=== PATIENT | female | born 1950 | race Caucasian/White ===

== ENCOUNTER → 2016-07-22 | Day surgery (SDC) | payer MEDICARE, MEDICAID ==
[~2016-07-22] VITALS: Ht 160 cm; Wt 102.3 kg
[~2016-07-22] MED LIST: BUPIVACAINE HCL PF 0.5% 30 ML VIAL ONE; CLINDAMYCIN PHOS 900 MG/6 ML VIAL ONE; CYMB60CA PO; DEXAMETHASONE SOD PHOS 4 MG/ML VIAL ONE; DEXT 5%-NACL 0.45% 1000 ML INJ 1,000 ML IV SCH; GABA300C5 PO; HYDR-3111 PO; HYDR25TA5 PO; LACTATED RINGER'S 1000 ML INJ 1,000 ML IV ONE; LACTATED RINGER'S 1000 ML INJ 1,000 ML ONE; LISI-515 PO; MELO7.5T4 PO; MIDAZOLAM HCL 2 MG/2 ML VIAL ONE; NORC5TAB PO; ONDANSETRON HCL 4 MG/2 ML VIAL IV PUSH ONE; PHENYLEPH/NS 1000 MCG/10 ML SYR IV ONE; PHENYLEPHRINE HCL 10 MG/ML VIAL IV ONE; POVIDONE IODINE 10% OINT 1 PACKET TOP ONE; PROPOFOL 200 MG/20 ML AMP IV ONE; SODIUM CHLOR 0.9% 250 ML INJ 250 ML IV ONE; SODIUM CHLOR 0.9% 250 ML INJ 250 ML ONE; SODIUM CHLORIDE 0.9% FLUSH 5 ML FLUSH IVF PRN; SODIUM CHLORIDE 0.9% FLUSH 5 ML FLUSH IVF SCH; TIZA4CAP3 PO; fentaNYL CITRATE 250 MCG/5 ML AMP ONE
[2016-07-22 06:51] VITALS: BP 145/89; PULSE 101; RESP 24; TEMP 98.1; O2SAT 96
[2016-07-22 07:13] LABS: HEMATOCRIT 42.7 % (35.0-46.0); MEAN CELL VOLUME 84.5 FL (80.0-100.0); MEAN CORPUSCULAR HGB CONC 33.1 % (32.0-36.0); PLATELET COUNT 304 TH/MM3 (150-450); RED BLOOD COUNT 5.05 MIL/MM3 (4.00-5.30); RED CELL DISTRIBUTION WIDTH 13.3 % (11.6-17.2); REVIEW FLAG FINAL; WHITE BLOOD COUNT 7.7 TH/MM3 (4.0-11.0)
[2016-07-22 07:35] VITALS: PULSE 125
--- NOTE | 2016-07-22 07:54 | HP.UPD ---
H&P Update Date: Jul 22, 2016 Note The Pre-Admit History and Physical Examination regarding the above named patient was reviewed (including, but not limited to, vital signs, medications, allergies, co-morbid conditions), and upon re-examination it is noted that: Indicated with "X" x - the patient's condition has not significantly changed since the last examination. [] - the patient's condition has changed since the last examination. Changes: Mary Ricks MD Jul 22, 2016 07:53
[2016-07-22] MEDS: TRIAMCINOLONE ACETONIDE 40 MG/ML VIAL ONE ×2 (08:41→10:34)
[2016-07-22 10:49] VITALS: PULSE 111
--- NOTE | 2016-07-22 10:58 | HHI.PR ---
Immediate Post Op Note Procedure Date: Jul 22, 2016 Pre Op Diagnosis: (1) Carpal tunnel syndrome (2) Osteoarthritis of hand, primary localized Post Op Diagnosis: (1) Carpal tunnel syndrome (2) Osteoarthritis of hand, primary localized Surgeon: Mary Ricks Frame Stripper(s): None Procedure: Interposition arthroplasty of the left thumb CMC joint. Release of the left carpal tunnel. Nerve wrap. Inject right thumb CMC joint with 0.3ml of Kenalog 40 Anesthesia: General Drains: None Tourniquet time (min at mmHg) 106 minutes at 220 mm Hg Patient to: PACU Patient Condition: Good Implant/Devices: SEE IMPLANT LOG (if applicable) Date/Time of Procedure: SEE SURGICAL CARE RECORD Mary Ricks MD Jul 22, 2016 10:58
[2016-07-22 11:45] VITALS: PULSE 103; TEMP 98.7
[2016-07-22 12:20] VITALS: BP 109/66; PULSE 107; RESP 16; O2SAT 98
--- NOTE | 2016-07-22 12:53 | MP ---
cc: REG ROSALES M.D. DATE OF SURGERY: 07/22/2016 PREOPERATIVE DIAGNOSIS 1. 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 2. Recurrent carpal tunnel syndrome of the left wrist. 3. Degenerative joint disease of the right thumb CMC joint. POSTOPERATIVE DIAGNOSIS 1. 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 2. Recurrent carpal tunnel syndrome of the left wrist. 3. Degenerative joint disease of the right thumb CMC joint. PROCEDURES 1. Release of the left carpal tunnel. 2. Nerve wrap with Integra nerve guide to the left median nerve. 3. Interposition arthroplasty of left thumb CMC joint with tendon transfer. 4. Injection of the right thumb CMC joint with local anesthetic and 0.3 mL of Kenalog 40. ANESTHESIA General. SURGEON Dr. Rosales. INDICATIONS 65-year-old female with severe pain in the left thumb CMC joint. In addition, she has had continued signs and symptoms of carpal tunnel syndrome despite being released. The patient also has degenerative joint disease of the right thumb CMC joint. At the completion of the procedure the carpal tunnel on the left had been released. The nerve had the scar tissue around it removed and the nerve itself was wrapped in a nerve tube. The carpal trapezium from the left was removed and replaced with tendon as well as stabilizing the area with the tendon transfer and the right thumb was injected. TOURNIQUET TIME 106 minutes. PROCEDURE The patient was seen preoperatively where the site and side were identified and marked. The patient was then taken to the operating room, placed in supine position. Her identity was checked against the arm band, the consent form, site and side confirmed, time-out called prior to beginning the procedure. The left upper extremity was prepped with Hibiclens and draped in usual sterile fashion. The areas to be incised were outlined with a marking pen as a longitudinal incision just to the ulnar side of midline of the palm. A transverse incision was also designed at the base of the left thumb dorsally. Transverse incision was also designed at the most distal volar portion of the flexor carpi radialis in the wrist and 9 cm proximal to this. The arm was then exsanguinated and tourniquet inflated to 220 mmHg. Attention was first turned to the carpal tunnel where the incision was made down through the skin, down to the subcutaneous tissue, down to the palmar fascia. Distally a small hole was poked in palmar fascia and using ulnar artery as a guide, Guyon's canal was released. The ulnar artery and nerve were retracted ulnarly. The median nerve was retracted medially and using the flexor tendon at the ring finger as a guide the transverse carpal ligament was divided. Once the forearm fascia was reached the scissor was kept in a slightly open position and using the push technique released in several centimeters into the distal forearm. The nerve was then carefully from the roof of the carpal tunnel and significant scar tissue was noted, this was then removed under loupe magnification until the fascicles were visible. A piece of Integra nerve wrap was wrapped around the nerve in the carpal tunnel and then sewn closed with 8-0 Ethilon suture material. The wound was irrigated and closed with running 4-0 Nylon suture. Attention was then turned to the base of the thumb where incision was made at the base of the thumb with a new 15 blade, down through the skin, down to the subcutaneous tissue. Under loupe magnification superficial vessels and nerves were identified and retracted exposing the capsule in the thumb CMC joint. This was then incised and opened exposing the carpal trapezium which was then carefully from surrounding structures and ligaments, using a 4-mm osteotome, it was then removed in piecemeal using a rongeur. The volar base of the thumb metacarpal was removed with a rongeur. A 4-mm hole was then drilled obliquely from the dorsal aspect of the metacarpal into the joint using sequentially large drill bits. The area was then copiously irrigated with saline. Attention was then turned to the palmar aspect of the forearm where a transverse incision was made at the most distal volar portion of the flexor carpi radialis and the wrist, 9 cm proximal to this. A tendon passer was then passed from distal to proximal and the ulnar 50% of the tendon was divided and passed distally using the tendon passer. It was then passed into the wound and the fibers were all the way to the insertion, into the base of the index metacarpal. It was then passed through the thumb metacarpal using a Hewson passer. The thumb was then pulled distally and adducted against the index metacarpal and then sewn upon itself using 3-0 Ethibond suture material. The remainder was wrapped around a portion coming from the index metacarpal to the thumb and this was then sewn upon itself making the anchovy. The capsule was then closed with 3-0 Ethibond. Excellent stability was noted and the skin was approximated with 4-0 Vicryl to the deep layers by the thumb base and then Dermabond to the skin. The Steri-Strips were then applied. The tourniquet was then released after 106 minutes of tourniquet time, pressure was applied. After several minutes there was no evidence of any oozing. A dressing was applied using povidone-iodine ointment, Adaptic Telfa to the carpal tunnel sutures and fluffy gauze to the entire wound along with a thumb spica splint. The patient was then taken from the operating room to the recovery room in satisfactory condition, having tolerated the procedure well. Postoperative instructions include keeping the arm elevated, keeping it clean and dry and returning later in the week for followup. The patient was given a block to her arm for postoperative pain control prior to the surgery. She was given a prescription for hydrocodone 5/325, 60 prescribed, 1 to 2 every 6 hours as needed for pain. MD LATOSHA Nielsen/TASIA /11:05 AM /12:23 PM
--- NOTE | 2016-07-22 15:08 | EKG ---
Date Performed: 07/22/2016 Time Performed: 06:55:08 PTAGE: 65 years EKG: Sinus tachycardia with PAC(s) Possible inferior infarct - age undetermined Lateral ST-T nallely nges are nonspecific Abnormal ECG NO PREVIOUS TRACING DOCTOR: Bear Hinds Interpretating Date/Time 07/22/2016 15:07:02
== END | disposition home or self-care (01) ==
LOC: PHSDC 06:06
PROVIDERS: ATTEND Specialist
DX: G56.02 Carpal tunnel syndrome, left upper limb (principal); M19.042 Primary osteoarthritis, left hand; M19.041 Primary osteoarthritis, right hand; R94.31 Abnormal electrocardiogram [ECG] [EKG]; I10 Essential (primary) hypertension
CPT/HCPCS: 01810; 20600; 25447; 26483; 36415; 64415; 64721; 64910; 85027; 93005; C9352; J1100; J2250; J2370; J2405; J3010; J3301; J7050; J7120